=== PATIENT | female | born 1935 | race Caucasian/White ===

== ENCOUNTER 2017-07-04 21:34 | Inpatient (IN) ==
[2017-07-04] MEDS ORDERED: ONDANSETRON 4 MG/2 ML VIAL IV STA (22:31)
[2017-07-04] MEDS ORDERED: ONDANSETRON 4 MG/2 ML VIAL ONE (22:39)
[2017-07-04 23:08] LABS: Basophils # 0.1 10*3/uL (0.0-0.2); Basophils % 0.3 % (0.0-0.8); Eosinophils # 0.3 10*3/uL (0.0-0.87); Eosinophils % 1.1 % (0.00-10.9); Hematocrit 42.9 VOL% (35.7-47.0); Immature Granulocytes Absolute 0.28 #; Lymphocytes # 1.2 10*3/uL (1.4-4.0); Lymphocytes % 4.1 % (21.3-54.2); Mean Corpuscular HGB Conc 32.6 GM/DL (32-36); Mean Corpuscular Hemoglobin 30 PG (27-34); Mean Corpuscular Volume 91.5 FL (87-102); Mean Platelet Volume 9.6 FL (9.6-12.0); Monocytes # 1.1 10*3/uL (0.11-0.8); Monocytes % 3.8 % (1.7-12.7); Neutrophils # 25.4 10*3/uL (1.4-7.4); Neutrophils % 89.7 % (38.7-73.9); Platelet Count 449 T/CUMM (130-400); Red Blood Count 4.69 MC/CUMM (3.8-5.5); Red Cell Distribution Width 14.7 % (9.3-17.3); White Blood Count 28.3 T/CUMM (4-12)
[2017-07-04 23:37] LABS: Alanine Aminotransferase 14 U/L (13-56); Alkaline Phosphatase 104 U/L (45-117); Aspartate Amino Transferase 12 U/L (0-37); Bilirubin,Direct < 0.100 MG/DL (0.0-0.20); Bilirubin,Indirect 0.3 MG/DL (0.0-1.0); Blood Urea Nitrogen 29 MG/DL (7-18); Calcium 8.9 MG/DL (8.5-10.1); Glucose 116 MG/DL (74-106); Magnesium 2.5 MG/DL (1.8-2.4); Potassium 3.9 MMOL/L (3.5-5.1); Sodium 143 MMOL/L (136-145); Total Protein 8.4 G/DL (6.4-8.3); Troponin I Only < 0.015 NG/ML (0.00-0.045)
[2017-07-04] MEDS ORDERED: SODIUM CHLORIDE 0.9% 500 ML IV STA (23:40)
[2017-07-04 23:57] LABS: Anisocytosis 1+; Band Neutrophils 12 % (0-10); Eosinophils 2 % (0-10); Lymphocytes 2 % (20-55); Poikilocytosis 1+; Segmented Neutrophils 79 % (50-85); Total Cells Counted 100
[2017-07-05 00:23] LABS: Apearance,Urine Slightly Hazy (Clear); Bacteria,Urine Occasional /HPF (Few); Bilirubin,Urine Negative (Negative); Blood, Urine Small mg/dL (Negative); Glucose,Urine (UA) Negative (Negative); Hyaline Casts,Urine 5 /LPF (0-3); Ketones,Urine Negative (Negative); Mucus,Urine Occasional /LPF (Occasional); Nitrite,Urine Negative (Negative); Protein,Urine 100 MG/DL; Squamous Epithelial Cell,Urine Occasional /HPF (0-10); Urine Color Yellow (Yellow); Urine Specific Gravity 1.021 (1.001-1.035); Urine Urobilinogen < 2.0 EU/DL (0.2-1.0); WBC,Urine 5 /HPF (0-6)
[2017-07-05] MEDS: cefTRIAXone 1,000 MG in SYRINGE 1 EACH IV SCH (01:00)
[2017-07-05] MEDS ORDERED: AZITHROMYCIN 500 MG VIAL IV ONE (01:09)
[2017-07-05] MEDS ORDERED: cefTRIAXone 1,000 MG VIAL ONE (01:10)
[2017-07-05] MEDS: AZITHROMYCIN INJ 500 MG in SODIUM CHLORIDE 0.9% 250 ML IV SCH (01:30)
[2017-07-05] MEDS ORDERED: ONDANSETRON 4 MG/2 ML VIAL IV PRN (01:55)
[2017-07-05] MEDS ORDERED: ACETAMINOPHEN 325 MG TABLET PO PRN (01:55)
[2017-07-05] MEDS: SODIUM CHLORIDE 0.9% 1,000 ML IV SCH ×2 (02:24→17:15)
[2017-07-05] MEDS ORDERED: INFLUENZA VIRUS VACCINE 0.5 ML SYRINGE IM ONE (03:06)
[2017-07-05] MEDS: SODIUM CHLORIDE 0.45% 1,000 ML IV SCH ×3 (14:27→23:40)
[2017-07-05] MEDS: ALBUTEROL/IPRATROPIUM 3 ML NEB RESP TX SCH ×2 (15:04→20:41)
[2017-07-05] MEDS: methylPREDNISolone SOD SUC 40 MG/1 ML VIAL IV SCH ×2 (15:06→22:54)
[2017-07-05] MEDS: BUDESONIDE 0.25 MG/2 ML NEB RESP TX SCH (20:41)
[2017-07-06] MEDS: ALBUTEROL/IPRATROPIUM 3 ML NEB RESP TX SCH ×4 (00:24→11:29)
[2017-07-06] MEDS: cefTRIAXone 1,000 MG in SYRINGE 1 EACH IV SCH (01:09)
[2017-07-06] MEDS: AZITHROMYCIN INJ 500 MG in SODIUM CHLORIDE 0.9% 250 ML IV SCH (02:17)
[2017-07-06 05:11] LABS: Basophils % 0.1 % (0.0-0.8); Hematocrit 30.6 VOL% (35.7-47.0); Immature Granulocytes % 0.6 %; Immature Granulocytes Absolute 0.06 #; Lymphocytes # 1.1 10*3/uL (1.4-4.0); Lymphocytes % 11.3 % (21.3-54.2); Mean Corpuscular HGB Conc 32.7 GM/DL (32-36); Mean Corpuscular Hemoglobin 30 PG (27-34); Mean Corpuscular Volume 91.6 FL (87-102); Monocytes # 0.1 10*3/uL (0.11-0.8); Monocytes % 0.8 % (1.7-12.7); Neutrophils # 8.1 10*3/uL (1.4-7.4); Neutrophils % 87.2 % (38.7-73.9); Platelet Count 297 T/CUMM (130-400); Red Blood Count 3.34 MC/CUMM (3.8-5.5); Red Cell Distribution Width 14.6 % (9.3-17.3); White Blood Count 9.3 T/CUMM (4-12)
[2017-07-06 05:23] LABS: ABG Base Excess -8.6 MMOL/L (-2.5-2.5); ABG HCO3 17.5 MMOL/L (20-26); ABG Oxygen Saturation 98.8 % (95-100); ABG TCO2 13.5 MMOL/L (23-27); Allen Test Positive
[2017-07-06 05:35] LABS: Alanine Aminotransferase 10 U/L (13-56); Alkaline Phosphatase 76 U/L (45-117); Aspartate Amino Transferase 8 U/L (0-37); Bilirubin,Total < 0.39 MG/DL (0.2-1.0); Blood Urea Nitrogen 14 MG/DL (7-18); Calcium 8.2 MG/DL (8.5-10.1); Glucose 160 MG/DL (74-106); Magnesium 2.1 MG/DL (1.8-2.4); Osmolality,Calculated 286.1 MOS/KG (273-304); Potassium 4.4 MMOL/L (3.5-5.1); Sodium 142 MMOL/L (136-145); Total Protein 6.3 G/DL (6.4-8.3)
[2017-07-06] MEDS ORDERED: OLOPATADINE HCL BOTH EYES PRN (05:42)
[2017-07-06] MEDS ORDERED: ASPIRIN CHEW 81 MG TABLET PO ONE (05:48)
[2017-07-06] MEDS ORDERED: FUROSEMIDE 20 MG/2 ML VIAL IV ONE (05:52)
[2017-07-06 06:16] LABS: Troponin I Only < 0.015 NG/ML (0.00-0.045)
[2017-07-06] MEDS: methylPREDNISolone SOD SUC 40 MG/1 ML VIAL IV SCH ×3 (06:41→21:16)
[2017-07-06] MEDS: LEVOTHYROXINE 25 MCG TABLET PO SCH (07:41)
[2017-07-06] MEDS: ASPIRIN EC 81 MG TABLET PO SCH (08:53)
[2017-07-06] MEDS: METOPROLOL SUCCINATE XL 50 MG TABLET PO SCH (08:53)
[2017-07-06] MEDS ORDERED: AMIODARONE 200 MG TABLET PO SCH (09:00)
[2017-07-06] MEDS ORDERED: METOPROLOL SUCCINATE XL 25 MG TABLET PO SCH (09:00)
[2017-07-06] MEDS ORDERED: MEGESTROL 40 MG TABLET PO SCH (09:00)
[2017-07-06] MEDS: BUDESONIDE 0.25 MG/2 ML NEB RESP TX SCH ×2 (11:32→19:57)
[2017-07-06] MEDS: ISOSORBIDE MONONITRATE 30 MG TABLET PO SCH (15:09)
[2017-07-06] MEDS: LEVALBUTEROL 0.63 MG/3 ML NEB RESP TX SCH (16:12)
[2017-07-06] MEDS: IPRATROPIUM 500 MCG/2.5 ML NEB RESP TX SCH (16:12)
[2017-07-06] MEDS: SODIUM CHLORIDE 0.45% 1,000 ML IV SCH (17:46)
[2017-07-06] MEDS: ROSUVASTATIN 10 MG TABLET PO SCH (21:16)
[2017-07-07] MEDS: IPRATROPIUM 500 MCG/2.5 ML NEB RESP TX SCH ×3 (00:38→14:16)
[2017-07-07] MEDS: LEVALBUTEROL 0.63 MG/3 ML NEB RESP TX SCH ×3 (00:38→14:16)
[2017-07-07] MEDS: SODIUM CHLORIDE 0.45% 1,000 ML IV SCH ×2 (01:46→09:26)
[2017-07-07] MEDS: cefTRIAXone 1,000 MG in SYRINGE 1 EACH IV SCH (01:57)
[2017-07-07] MEDS: AZITHROMYCIN INJ 500 MG in SODIUM CHLORIDE 0.9% 250 ML IV SCH (02:48)
[2017-07-07] MEDS: methylPREDNISolone SOD SUC 40 MG/1 ML VIAL IV SCH ×3 (06:11→22:23)
[2017-07-07] MEDS: NICOTINE 21 MG/24 HR PATCH TRANSDERM PRN (06:12)
[2017-07-07] MEDS: LEVOTHYROXINE 25 MCG TABLET PO SCH (06:13)
[2017-07-07 06:24] LABS: Basophils % 0.1 % (0.0-0.8); Hematocrit 28.4 VOL% (35.7-47.0); Hemoglobin 9.2 GM/DL (12.0-16.0); Immature Granulocytes % 0.9 %; Lymphocytes # 1.2 10*3/uL (1.4-4.0); Lymphocytes % 10.4 % (21.3-54.2); Mean Corpuscular HGB Conc 32.4 GM/DL (32-36); Mean Corpuscular Hemoglobin 30 PG (27-34); Mean Platelet Volume 10.2 FL (9.6-12.0); Monocytes # 0.2 10*3/uL (0.11-0.8); Monocytes % 2.1 % (1.7-12.7); Neutrophils # 9.7 10*3/uL (1.4-7.4); Neutrophils % 86.5 % (38.7-73.9); Platelet Count 279 T/CUMM (130-400); Red Blood Count 3.12 MC/CUMM (3.8-5.5); Red Cell Distribution Width 14.6 % (9.3-17.3); White Blood Count 11.2 T/CUMM (4-12)
[2017-07-07 06:59] LABS: Calcium 8.3 MG/DL (8.5-10.1); Potassium 3.6 MMOL/L (3.5-5.1)
[2017-07-07] MEDS: ALBUTEROL/IPRATROPIUM 3 ML NEB RESP TX SCH (07:28)
[2017-07-07] MEDS: BUDESONIDE 0.25 MG/2 ML NEB RESP TX SCH ×2 (07:28→19:36)
[2017-07-07] MEDS: ASPIRIN EC 81 MG TABLET PO SCH (09:26)
[2017-07-07] MEDS: METOPROLOL SUCCINATE XL 50 MG TABLET PO SCH (09:26)
[2017-07-07] MEDS: ISOSORBIDE MONONITRATE 30 MG TABLET PO SCH (09:26)
[2017-07-07] MEDS: FUROSEMIDE 20 MG/2 ML VIAL IV SCH (09:27)
[2017-07-07] MEDS: ASCORBIC ACID 500 MG TABLET PO SCH ×2 (14:45→20:34)
[2017-07-07] MEDS: ARFORMOTEROL 15 MCG/2 ML NEB RESP TX SCH (19:36)
[2017-07-07] MEDS: ROSUVASTATIN 10 MG TABLET PO SCH (20:34)
[2017-07-08] MEDS: IPRATROPIUM 500 MCG/2.5 ML NEB RESP TX SCH ×4 (00:48→23:35)
[2017-07-08] MEDS: LEVALBUTEROL 0.63 MG/3 ML NEB RESP TX SCH ×4 (00:48→23:35)
[2017-07-08] MEDS: cefTRIAXone 1,000 MG in SYRINGE 1 EACH IV SCH (03:03)
[2017-07-08] MEDS: AZITHROMYCIN INJ 500 MG in SODIUM CHLORIDE 0.9% 250 ML IV SCH (03:12)
[2017-07-08] MEDS: methylPREDNISolone SOD SUC 40 MG/1 ML VIAL IV SCH ×2 (06:12→17:11)
[2017-07-08] MEDS: LEVOTHYROXINE 25 MCG TABLET PO SCH (06:12)
[2017-07-08 06:55] LABS: Hematocrit 30.2 VOL% (35.7-47.0); Hemoglobin 9.7 GM/DL (12.0-16.0); Immature Granulocytes % 1.2 %; Immature Granulocytes Absolute 0.11 #; Lymphocytes # 0.9 10*3/uL (1.4-4.0); Lymphocytes % 10.1 % (21.3-54.2); Mean Corpuscular HGB Conc 32.1 GM/DL (32-36); Mean Corpuscular Hemoglobin 29 PG (27-34); Mean Corpuscular Volume 90.4 FL (87-102); Mean Platelet Volume 10.8 FL (9.6-12.0); Monocytes # 0.4 10*3/uL (0.11-0.8); Monocytes % 3.9 % (1.7-12.7); Neutrophils # 7.6 10*3/uL (1.4-7.4); Neutrophils % 84.8 % (38.7-73.9); Platelet Count 286 T/CUMM (130-400); Red Blood Count 3.34 MC/CUMM (3.8-5.5); Red Cell Distribution Width 14.5 % (9.3-17.3)
[2017-07-08] MEDS: ARFORMOTEROL 15 MCG/2 ML NEB RESP TX SCH ×2 (07:14→18:15)
[2017-07-08] MEDS: BUDESONIDE 0.25 MG/2 ML NEB RESP TX SCH (07:14)
[2017-07-08 07:30] LABS: Calcium 8.1 MG/DL (8.5-10.1); Potassium 3.7 MMOL/L (3.5-5.1)
[2017-07-08] MEDS: FUROSEMIDE 20 MG/2 ML VIAL IV SCH (08:29)
[2017-07-08] MEDS: METOPROLOL SUCCINATE XL 50 MG TABLET PO SCH (08:29)
[2017-07-08] MEDS: ASCORBIC ACID 500 MG TABLET PO SCH ×2 (08:29→21:33)
[2017-07-08] MEDS: ISOSORBIDE MONONITRATE 30 MG TABLET PO SCH (08:30)
[2017-07-08] MEDS: ASPIRIN EC 81 MG TABLET PO SCH (08:30)
[2017-07-08] MEDS: FUROSEMIDE 20 MG TABLET PO SCH (09:22)
[2017-07-08] MEDS: NICOTINE 21 MG/24 HR PATCH TRANSDERM PRN (14:56)
[2017-07-08] MEDS: ROSUVASTATIN 10 MG TABLET PO SCH (21:33)
[2017-07-08] MEDS: clonazePAM 0.5 MG TABLET PO SCH (21:33)
[2017-07-09] MEDS: cefTRIAXone 1,000 MG in SYRINGE 1 EACH IV SCH (01:28)
[2017-07-09] MEDS: AZITHROMYCIN INJ 500 MG in SODIUM CHLORIDE 0.9% 250 ML IV SCH (03:19)
[2017-07-09] MEDS: methylPREDNISolone SOD SUC 40 MG/1 ML VIAL IV SCH (06:35)
[2017-07-09] MEDS: LEVOTHYROXINE 25 MCG TABLET PO SCH (06:35)
[2017-07-09] MEDS: IPRATROPIUM 500 MCG/2.5 ML NEB RESP TX SCH ×2 (08:10→15:26)
[2017-07-09] MEDS: LEVALBUTEROL 0.63 MG/3 ML NEB RESP TX SCH ×2 (08:15→15:26)
[2017-07-09] MEDS: BUDESONIDE 0.25 MG/2 ML NEB RESP TX SCH ×2 (08:15→20:03)
[2017-07-09] MEDS: ARFORMOTEROL 15 MCG/2 ML NEB RESP TX SCH ×2 (08:15→20:03)
[2017-07-09] MEDS: FUROSEMIDE 20 MG TABLET PO SCH (09:05)
[2017-07-09] MEDS: ASPIRIN EC 81 MG TABLET PO SCH (09:06)
[2017-07-09] MEDS: ASCORBIC ACID 500 MG TABLET PO SCH ×2 (09:06→21:07)
[2017-07-09] MEDS: ISOSORBIDE MONONITRATE 30 MG TABLET PO SCH (09:06)
[2017-07-09] MEDS: METOPROLOL SUCCINATE XL 50 MG TABLET PO SCH (09:06)
[2017-07-09] MEDS ORDERED: methylPREDNISolone SOD SUC 40 MG/1 ML VIAL IV SCH (10:00)
[2017-07-09] MEDS ORDERED: methylPREDNISolone SOD SUC 40 MG/1 ML VIAL ONE (11:12)
[2017-07-09 11:28] LABS: Free T4 (Free Thyroxine) 1.22 NG/DL (0.76-1.46); Thyroid Stimulating Hormone 0.34 uIU/ml (0.358-3.74)
[2017-07-09] MEDS: ROSUVASTATIN 10 MG TABLET PO SCH (21:07)
[2017-07-09] MEDS: clonazePAM 0.5 MG TABLET PO SCH (21:07)
[2017-07-10] MEDS: IPRATROPIUM 500 MCG/2.5 ML NEB RESP TX SCH ×2 (01:05→07:56)
[2017-07-10] MEDS: LEVALBUTEROL 0.63 MG/3 ML NEB RESP TX SCH ×2 (01:05→07:56)
[2017-07-10] MEDS: cefTRIAXone 1,000 MG in SYRINGE 1 EACH IV SCH (02:06)
[2017-07-10] MEDS ORDERED: methylPREDNISolone SOD SUC 40 MG/1 ML VIAL IV SCH (06:30)
[2017-07-10] MEDS: BUDESONIDE 0.25 MG/2 ML NEB RESP TX SCH (07:56)
[2017-07-10] MEDS: ARFORMOTEROL 15 MCG/2 ML NEB RESP TX SCH (07:56)
[2017-07-10] MEDS: ASPIRIN EC 81 MG TABLET PO SCH (08:48)
[2017-07-10] MEDS: METOPROLOL SUCCINATE XL 50 MG TABLET PO SCH (08:48)
[2017-07-10] MEDS: ASCORBIC ACID 500 MG TABLET PO SCH (08:48)
[2017-07-10] MEDS: FUROSEMIDE 20 MG TABLET PO SCH (08:48)
[2017-07-10] MEDS: ISOSORBIDE MONONITRATE 30 MG TABLET PO SCH (08:48)
[2017-07-10 09:36] VITALS: BP 151/82
[2017-07-11] MEDS ORDERED: LEVOTHYROXINE 25 MCG TABLET PO SCH (07:00)
== END 2017-07-10 12:23 | disposition home health service (06) | DRG 190 ==
LOC: EDBD → EDUNIT# → N.ED 21:34 → N.EDINP 07-05 01:10 → N.5E 07-05 01:54
PROVIDERS: ADMIT Internal Medicine; ATTEND Internal Medicine

== ENCOUNTER 2017-08-24 20:38 | Inpatient (IN) ==
[2017-08-24] MEDS ORDERED: ONDANSETRON 4 MG/2 ML VIAL IV STA (21:16)
[2017-08-24] MEDS ORDERED: MORPHINE 2 MG/1 ML SYRINGE IV STA (21:16)
[2017-08-24] MEDS ORDERED: SODIUM CHLORIDE 0.9% 500 ML IV STA (21:16)
[2017-08-24] MEDS ORDERED: ASPIRIN 325 MG TABLET PO STA (21:16)
[2017-08-24] MEDS ORDERED: methylPREDNISolone SOD SUC 125 MG/2 ML VIAL IV STA (21:16)
[2017-08-24] MEDS ORDERED: NITROGLYCERIN 2% OINT 1 INCH/GM PACK TOP STA (21:16)
[2017-08-24] MEDS ORDERED: ALBUTEROL 2.5 MG/3 ML NEB RESP TX SCH (21:30)
[2017-08-24] MEDS ORDERED: ASPIRIN 325 MG TABLET ONE (21:36)
[2017-08-24] MEDS ORDERED: methylPREDNISolone SOD SUC 125 MG/2 ML VIAL ONE (21:36)
[2017-08-24] MEDS ORDERED: ONDANSETRON 4 MG/2 ML VIAL ONE (21:36)
[2017-08-24] MEDS ORDERED: MORPHINE 2 MG/1 ML SYRINGE ONE (21:36)
[2017-08-24] MEDS ORDERED: NITROGLYCERIN 2% OINT 1 INCH/GM PACK TOP ONE (21:36)
[2017-08-24 22:15] LABS: Basophils # 0.1 10*3/uL (0.0-0.2); Basophils % 0.6 % (0.0-0.8); Eosinophils # 0.2 10*3/uL (0.0-0.87); Hematocrit 35.9 VOL% (35.7-47.0); Hemoglobin 12.2 GM/DL (12.0-16.0); Immature Granulocytes Absolute 0.99 #; Lymphocytes # 4.2 10*3/uL (1.4-4.0); Lymphocytes % 25.1 % (21.3-54.2); Mean Corpuscular Hemoglobin 31 PG (27-34); Mean Corpuscular Volume 90.9 FL (87-102); Mean Platelet Volume 9.9 FL (9.6-12.0); Monocytes # 1.3 10*3/uL (0.11-0.8); Monocytes % 7.9 % (1.7-12.7); Neutrophils # 9.8 10*3/uL (1.4-7.4); Neutrophils % 59.4 % (38.7-73.9); Platelet Count 494 T/CUMM (130-400); Red Blood Count 3.95 MC/CUMM (3.8-5.5); White Blood Count 16.6 T/CUMM (4-12)
[2017-08-24 22:22] LABS: PT Patient Result 10.5 SECS
[2017-08-24 22:42] LABS: Albumin 3.5 G/DL (3.4-5.0); Bilirubin,Total 0.4 MG/DL (0.2-1.0); Calcium 8.5 MG/DL (8.5-10.1); Total Protein 6.4 G/DL (6.4-8.3)
[2017-08-24 22:43] LABS: Osmolality,Calculated 283.4 MOS/KG (273-304); Potassium 3.8 MMOL/L (3.5-5.1); Troponin I Only 0.016 NG/ML (0.00-0.045)
[2017-08-24 23:23] LABS: Band Neutrophils 5 % (0-10); Lymphocytes 31 % (20-55); Platelet Estimate Normal; Segmented Neutrophils 60 % (50-85); Total Cells Counted 100
[2017-08-25] MEDS ORDERED: ENOXAPARIN 40 MG/0.4 ML SYRINGE ONE (01:22)
[2017-08-25] MEDS ORDERED: cefTRIAXone 1,000 MG VIAL ONE (01:22)
[2017-08-25] MEDS ORDERED: MORPHINE 2 MG/1 ML SYRINGE ONE (02:11)
[2017-08-25] MEDS ORDERED: MORPHINE 2 MG/1 ML SYRINGE IV PRN (02:26)
[2017-08-25] MEDS ORDERED: ALBUTEROL/IPRATROPIUM 3 ML NEB RESP TX PRN (02:26)
[2017-08-25] MEDS ORDERED: ACETAMINOPHEN 325 MG TABLET PO PRN (02:26)
[2017-08-25] MEDS ORDERED: ONDANSETRON 4 MG/2 ML VIAL IV PRN (02:26)
[2017-08-25] MEDS: SODIUM CHLORIDE 0.9% 1,000 ML IV SCH ×3 (02:53→18:14)
[2017-08-25] MEDS: methylPREDNISolone SOD SUC 40 MG/1 ML VIAL IV SCH ×4 (02:54→18:16)
[2017-08-25] MEDS: cefTRIAXone 1,000 MG in SYRINGE 1 EACH IV SCH (02:54)
[2017-08-25] MEDS: AZITHROMYCIN INJ 500 MG in SODIUM CHLORIDE 0.9% 250 ML IV SCH (03:50)
[2017-08-25 04:35] LABS: Apearance,Urine CLEAR (Clear); Bilirubin,Urine Negative (Negative); Blood, Urine Negative (Negative); Glucose,Urine (UA) Negative (Negative); Hyaline Casts,Urine 3 /LPF (0-3); Ketones,Urine Negative (Negative); Mucus,Urine Occasional /LPF (Occasional); Nitrite,Urine Negative (Negative); Protein,Urine Negative; RBC,Urine 1 /HPF (0-4); Squamous Epithelial Cell,Urine Occasional /HPF (0-10); Urine Color Yellow (Yellow); Urine Specific Gravity 1.014 (1.001-1.035); Urine Urobilinogen < 2.0 EU/DL (0.2-1.0); WBC,Urine 2 /HPF (0-6)
[2017-08-25 04:49] LABS: Basophils # 0.1 10*3/uL (0.0-0.2); Basophils % 0.5 % (0.0-0.8); Eosinophils % 0.1 % (0.00-10.9); Hematocrit 32.7 VOL% (35.7-47.0); Immature Granulocytes % 6.3 %; Immature Granulocytes Absolute 0.87 #; Lymphocytes # 1.5 10*3/uL (1.4-4.0); Lymphocytes % 10.5 % (21.3-54.2); Mean Corpuscular HGB Conc 33.6 GM/DL (32-36); Mean Corpuscular Hemoglobin 31 PG (27-34); Mean Corpuscular Volume 91.6 FL (87-102); Mean Platelet Volume 10.3 FL (9.6-12.0); Monocytes # 0.2 10*3/uL (0.11-0.8); Monocytes % 1.4 % (1.7-12.7); Neutrophils # 11.3 10*3/uL (1.4-7.4); Neutrophils % 81.2 % (38.7-73.9); Platelet Count 455 T/CUMM (130-400); Red Blood Count 3.57 MC/CUMM (3.8-5.5); Red Cell Distribution Width 16.1 % (9.3-17.3); White Blood Count 13.9 T/CUMM (4-12)
[2017-08-25 05:14] LABS: Troponin I Only < 0.015 NG/ML (0.00-0.045)
[2017-08-25 05:15] LABS: Giant Platelets Few; Hypochromasia 1+; Lymphocytes 6 % (20-55); Ovalocytes Slight; Platelet Estimate Adequate; Segmented Neutrophils 91 % (50-85); Total Cells Counted 100
[2017-08-25 05:19] LABS: Bilirubin,Total 0.5 MG/DL (0.2-1.0); Calcium 8.6 MG/DL (8.5-10.1); Osmolality,Calculated 290.1 MOS/KG (273-304); Risk Ratio 3.55; VLDL CHOLESTEROL 20.2 MG/DL
[2017-08-25] MEDS ORDERED: PANTOPRAZOLE 40 MG VIAL IV SCH (09:00)
[2017-08-25] MEDS: DOCUSATE SODIUM 100 MG CAPSULE PO SCH ×2 (09:13→20:24)
[2017-08-25] MEDS: ENOXAPARIN 30 MG/0.3 ML SYRINGE SUBCUT SCH (09:13)
[2017-08-25 13:49] LABS: Troponin I Only < 0.015 NG/ML (0.00-0.045)
[2017-08-25] MEDS: ALBUTEROL/IPRATROPIUM 3 ML NEB RESP TX SCH ×2 (14:40→19:45)
[2017-08-25] MEDS: BUDESONIDE/FORMOTEROL 80-4.5 INHALER 6.9 GM INH SCH (20:24)
[2017-08-25] MEDS: ROSUVASTATIN 20 MG TABLET PO SCH (20:24)
[2017-08-25] MEDS: PANTOPRAZOLE 40 MG TABLET PO SCH (20:24)
[2017-08-26] MEDS: AZITHROMYCIN INJ 500 MG in SODIUM CHLORIDE 0.9% 250 ML IV SCH (03:02)
[2017-08-26] MEDS: cefTRIAXone 1,000 MG in SYRINGE 1 EACH IV SCH (03:02)
[2017-08-26] MEDS: methylPREDNISolone SOD SUC 40 MG/1 ML VIAL IV SCH ×3 (03:02→17:26)
[2017-08-26] MEDS: SODIUM CHLORIDE 0.9% 1,000 ML IV SCH ×3 (05:33→17:26)
[2017-08-26] MEDS: LEVOTHYROXINE 25 MCG TABLET PO SCH (05:34)
[2017-08-26 06:08] LABS: Basophils % 0.1 % (0.0-0.8); Hematocrit 33.1 VOL% (35.7-47.0); Hemoglobin 10.5 GM/DL (12.0-16.0); Immature Granulocytes % 4.3 %; Immature Granulocytes Absolute 0.76 #; Lymphocytes # 1.4 10*3/uL (1.4-4.0); Lymphocytes % 7.7 % (21.3-54.2); Mean Corpuscular HGB Conc 31.7 GM/DL (32-36); Mean Corpuscular Hemoglobin 30 PG (27-34); Mean Corpuscular Volume 95.9 FL (87-102); Monocytes # 0.5 10*3/uL (0.11-0.8); Monocytes % 2.6 % (1.7-12.7); Neutrophils % 85.3 % (38.7-73.9); Platelet Count 421 T/CUMM (130-400); Red Blood Count 3.45 MC/CUMM (3.8-5.5); Red Cell Distribution Width 16.7 % (9.3-17.3); White Blood Count 17.6 T/CUMM (4-12)
[2017-08-26 06:29] LABS: Band Neutrophils 1 % (0-10); Lymphocytes 6 % (20-55); Segmented Neutrophils 92 % (50-85); Total Cells Counted 100
[2017-08-26 06:30] LABS: Hypochromasia 1+; Microcytosis 1+; Ovalocytes Slight; Platelet Estimate Increased
[2017-08-26 06:38] LABS: Calcium 8.2 MG/DL (8.5-10.1); Osmolality,Calculated 292.8 MOS/KG (273-304); Potassium 3.8 MMOL/L (3.5-5.1)
[2017-08-26] MEDS: ALBUTEROL/IPRATROPIUM 3 ML NEB RESP TX SCH ×4 (07:46→19:23)
[2017-08-26] MEDS: ENOXAPARIN 30 MG/0.3 ML SYRINGE SUBCUT SCH (08:47)
[2017-08-26] MEDS: FUROSEMIDE 40 MG TABLET PO SCH (08:48)
[2017-08-26] MEDS: MEGESTROL 40 MG TABLET PO SCH (08:48)
[2017-08-26] MEDS: THEOPHYLLINE ER (24 HR) 400 MG CAPSULE PO SCH (08:48)
[2017-08-26] MEDS: PANTOPRAZOLE 40 MG TABLET PO SCH ×2 (08:48→20:56)
[2017-08-26] MEDS: DOCUSATE SODIUM 100 MG CAPSULE PO SCH ×2 (08:48→20:57)
[2017-08-26] MEDS: ISOSORBIDE MONONITRATE 30 MG TABLET PO SCH (08:48)
[2017-08-26] MEDS: BUDESONIDE/FORMOTEROL 80-4.5 INHALER 6.9 GM INH SCH ×2 (08:49→20:57)
[2017-08-26] MEDS: NICOTINE 21 MG/24 HR PATCH TRANSDERM SCH (09:20)
[2017-08-26] MEDS: METOPROLOL SUCCINATE XL 25 MG TABLET PO SCH (09:20)
[2017-08-26] MEDS: ROSUVASTATIN 20 MG TABLET PO SCH (20:56)
[2017-08-27] MEDS: methylPREDNISolone SOD SUC 40 MG/1 ML VIAL IV SCH ×3 (02:31→21:57)
[2017-08-27] MEDS: cefTRIAXone 1,000 MG in SYRINGE 1 EACH IV SCH (02:32)
[2017-08-27] MEDS: AZITHROMYCIN INJ 500 MG in SODIUM CHLORIDE 0.9% 250 ML IV SCH (02:32)
[2017-08-27 06:37] LABS: Basophils % 0.1 % (0.0-0.8); Hematocrit 27.2 VOL% (35.7-47.0); Hemoglobin 9.2 GM/DL (12.0-16.0); Immature Granulocytes % 4.1 %; Immature Granulocytes Absolute 0.64 #; Mean Corpuscular HGB Conc 33.8 GM/DL (32-36); Mean Corpuscular Hemoglobin 31 PG (27-34); Mean Corpuscular Volume 91.6 FL (87-102); Mean Platelet Volume 10.6 FL (9.6-12.0); Monocytes # 0.6 10*3/uL (0.11-0.8); Monocytes % 3.9 % (1.7-12.7); Neutrophils # 13.6 10*3/uL (1.4-7.4); Neutrophils % 85.9 % (38.7-73.9); Platelet Count 361 T/CUMM (130-400); Red Blood Count 2.97 MC/CUMM (3.8-5.5); Red Cell Distribution Width 16.5 % (9.3-17.3); White Blood Count 15.8 T/CUMM (4-12)
[2017-08-27 06:58] LABS: Calcium 7.8 MG/DL (8.5-10.1); Osmolality,Calculated 290.8 MOS/KG (273-304); Potassium 3.4 MMOL/L (3.5-5.1)
[2017-08-27 07:02] LABS: Band Neutrophils 1 % (0-10); Giant Platelets Few; Hypochromasia 1+; Lymphocytes 5 % (20-55); Nucleated Red Blood Cells 1 (0-5); Ovalocytes Slight; Platelet Estimate Adequate; Segmented Neutrophils 89 % (50-85); Total Cells Counted 100
[2017-08-27 07:03] LABS: Microcytosis Slight
[2017-08-27] MEDS: LEVOTHYROXINE 25 MCG TABLET PO SCH (07:10)
[2017-08-27] MEDS: ALBUTEROL/IPRATROPIUM 3 ML NEB RESP TX SCH ×4 (08:06→19:49)
[2017-08-27] MEDS: SODIUM CHLORIDE 0.9% 1,000 ML IV SCH (09:04)
[2017-08-27] MEDS: MEGESTROL 40 MG TABLET PO SCH (09:05)
[2017-08-27] MEDS: DOCUSATE SODIUM 100 MG CAPSULE PO SCH ×2 (09:05→21:57)
[2017-08-27] MEDS: FUROSEMIDE 40 MG TABLET PO SCH (09:05)
[2017-08-27] MEDS: PANTOPRAZOLE 40 MG TABLET PO SCH ×2 (09:05→21:58)
[2017-08-27] MEDS: busPIRone 5 MG TABLET PO SCH ×3 (09:05→21:58)
[2017-08-27] MEDS: METOPROLOL SUCCINATE XL 25 MG TABLET PO SCH (09:05)
[2017-08-27] MEDS: ISOSORBIDE MONONITRATE 30 MG TABLET PO SCH (09:05)
[2017-08-27] MEDS: THEOPHYLLINE ER (24 HR) 400 MG CAPSULE PO SCH (09:05)
[2017-08-27] MEDS: ENOXAPARIN 30 MG/0.3 ML SYRINGE SUBCUT SCH (09:06)
[2017-08-27] MEDS: NICOTINE 21 MG/24 HR PATCH TRANSDERM SCH (09:06)
[2017-08-27] MEDS: BUDESONIDE/FORMOTEROL 80-4.5 INHALER 6.9 GM INH SCH ×2 (09:06→22:02)
[2017-08-27] MEDS: PARoxetine 10 MG TABLET PO SCH ×2 (09:09→21:57)
[2017-08-27] MEDS: ROSUVASTATIN 20 MG TABLET PO SCH (21:58)
[2017-08-28] MEDS: cefTRIAXone 1,000 MG in SYRINGE 1 EACH IV SCH (03:19)
[2017-08-28] MEDS: AZITHROMYCIN INJ 500 MG in SODIUM CHLORIDE 0.9% 250 ML IV SCH (03:19)
[2017-08-28] MEDS: LEVOTHYROXINE 25 MCG TABLET PO SCH (06:14)
[2017-08-28 06:32] LABS: Basophils % 0.1 % (0.0-0.8); Hematocrit 30.2 VOL% (35.7-47.0); Hemoglobin 10.1 GM/DL (12.0-16.0); Immature Granulocytes % 5.1 %; Immature Granulocytes Absolute 1.03 #; Lymphocytes # 1.1 10*3/uL (1.4-4.0); Lymphocytes % 5.4 % (21.3-54.2); Mean Corpuscular HGB Conc 33.4 GM/DL (32-36); Mean Corpuscular Hemoglobin 31 PG (27-34); Mean Corpuscular Volume 91.2 FL (87-102); Mean Platelet Volume 10.7 FL (9.6-12.0); Monocytes # 0.9 10*3/uL (0.11-0.8); Monocytes % 4.7 % (1.7-12.7); NRBC # 0.02 10*3/uL; Neutrophils # 17.1 10*3/uL (1.4-7.4); Neutrophils % 84.7 % (38.7-73.9); Platelet Count 386 T/CUMM (130-400); Red Blood Count 3.31 MC/CUMM (3.8-5.5); Red Cell Distribution Width 16.3 % (9.3-17.3); White Blood Count 20.1 T/CUMM (4-12)
[2017-08-28 06:59] LABS: Hypochromasia 1+; Lymphocytes 4 % (20-55); Segmented Neutrophils 92 % (50-85); Total Cells Counted 100
[2017-08-28 07:00] LABS: Microcytosis 1+; Ovalocytes Slight; Platelet Estimate Normal
[2017-08-28 07:02] LABS: Calcium 8.2 MG/DL (8.5-10.1); Potassium 3.2 MMOL/L (3.5-5.1)
[2017-08-28] MEDS: ALBUTEROL/IPRATROPIUM 3 ML NEB RESP TX SCH ×4 (07:30→20:13)
[2017-08-28] MEDS ORDERED: methylPREDNISolone SOD SUC 40 MG/1 ML VIAL IV SCH (09:00)
[2017-08-28] MEDS: THEOPHYLLINE ER (24 HR) 400 MG CAPSULE PO SCH (09:07)
[2017-08-28] MEDS: METOPROLOL SUCCINATE XL 25 MG TABLET PO SCH (09:08)
[2017-08-28] MEDS: FUROSEMIDE 40 MG TABLET PO SCH (09:08)
[2017-08-28] MEDS: POTASSIUM CHLORIDE 20 MEQ TABLET PO PRN ×4 (09:08→14:59)
[2017-08-28] MEDS: busPIRone 5 MG TABLET PO SCH ×3 (09:08→21:36)
[2017-08-28] MEDS: DOCUSATE SODIUM 100 MG CAPSULE PO SCH ×2 (09:09→21:36)
[2017-08-28] MEDS: PANTOPRAZOLE 40 MG TABLET PO SCH ×2 (09:09→21:35)
[2017-08-28] MEDS: ISOSORBIDE MONONITRATE 30 MG TABLET PO SCH (09:09)
[2017-08-28] MEDS: ENOXAPARIN 30 MG/0.3 ML SYRINGE SUBCUT SCH (09:09)
[2017-08-28] MEDS: MEGESTROL 40 MG TABLET PO SCH (09:09)
[2017-08-28] MEDS: BUDESONIDE/FORMOTEROL 80-4.5 INHALER 6.9 GM INH SCH ×2 (09:09→21:36)
[2017-08-28] MEDS: NICOTINE 21 MG/24 HR PATCH TRANSDERM SCH (09:11)
[2017-08-28] MEDS: PARoxetine 10 MG TABLET PO SCH (21:36)
[2017-08-28] MEDS: ROSUVASTATIN 20 MG TABLET PO SCH (21:36)
[2017-08-29] MEDS: cefTRIAXone 1,000 MG in SYRINGE 1 EACH IV SCH (03:14)
[2017-08-29] MEDS: AZITHROMYCIN INJ 500 MG in SODIUM CHLORIDE 0.9% 250 ML IV SCH (03:14)
[2017-08-29] MEDS: LEVOTHYROXINE 25 MCG TABLET PO SCH (06:10)
[2017-08-29] MEDS: ALBUTEROL/IPRATROPIUM 3 ML NEB RESP TX SCH ×4 (07:25→18:56)
[2017-08-29] MEDS: NICOTINE 21 MG/24 HR PATCH TRANSDERM SCH (09:32)
[2017-08-29] MEDS: ENOXAPARIN 30 MG/0.3 ML SYRINGE SUBCUT SCH (09:32)
[2017-08-29] MEDS: ISOSORBIDE MONONITRATE 30 MG TABLET PO SCH (09:33)
[2017-08-29] MEDS: FUROSEMIDE 40 MG TABLET PO SCH (09:33)
[2017-08-29] MEDS: BUDESONIDE/FORMOTEROL 80-4.5 INHALER 6.9 GM INH SCH ×2 (09:34→20:50)
[2017-08-29] MEDS: THEOPHYLLINE ER (24 HR) 400 MG CAPSULE PO SCH (09:34)
[2017-08-29] MEDS: predniSONE 20 MG TABLET PO SCH (09:34)
[2017-08-29] MEDS: METOPROLOL SUCCINATE XL 25 MG TABLET PO SCH (09:34)
[2017-08-29] MEDS: MEGESTROL 40 MG TABLET PO SCH (09:34)
[2017-08-29] MEDS: busPIRone 5 MG TABLET PO SCH ×3 (09:34→20:50)
[2017-08-29] MEDS: DOCUSATE SODIUM 100 MG CAPSULE PO SCH ×3 (09:34→20:50)
[2017-08-29] MEDS: PANTOPRAZOLE 40 MG TABLET PO SCH ×2 (09:34→20:50)
[2017-08-29] MEDS: ROSUVASTATIN 20 MG TABLET PO SCH (20:50)
[2017-08-29] MEDS: PARoxetine 10 MG TABLET PO SCH (20:50)
[2017-08-30] MEDS: cefTRIAXone 1,000 MG in SYRINGE 1 EACH IV SCH (05:48)
[2017-08-30] MEDS: LEVOTHYROXINE 25 MCG TABLET PO SCH (05:48)
[2017-08-30 06:40] LABS: Basophils # 0.1 10*3/uL (0.0-0.2); Basophils % 0.2 % (0.0-0.8); Hematocrit 35.1 VOL% (35.7-47.0); Hemoglobin 11.7 GM/DL (12.0-16.0); Immature Granulocytes % 3.8 %; Immature Granulocytes Absolute 0.99 #; Lymphocytes # 2.6 10*3/uL (1.4-4.0); Lymphocytes % 10.2 % (21.3-54.2); Mean Corpuscular HGB Conc 33.3 GM/DL (32-36); Mean Corpuscular Hemoglobin 31 PG (27-34); Mean Corpuscular Volume 91.4 FL (87-102); Mean Platelet Volume 10.7 FL (9.6-12.0); Monocytes # 0.8 10*3/uL (0.11-0.8); Monocytes % 3.3 % (1.7-12.7); NRBC # 0.05 10*3/uL; Neutrophils # 21.2 10*3/uL (1.4-7.4); Neutrophils % 82.5 % (38.7-73.9); Platelet Count 337 T/CUMM (130-400); Red Blood Count 3.84 MC/CUMM (3.8-5.5); White Blood Count 25.8 T/CUMM (4-12)
[2017-08-30] MEDS: ALBUTEROL/IPRATROPIUM 3 ML NEB RESP TX SCH ×4 (07:01→17:57)
[2017-08-30 07:12] LABS: Calcium 8.6 MG/DL (8.5-10.1); Osmolality,Calculated 281.4 MOS/KG (273-304); Potassium 3.3 MMOL/L (3.5-5.1)
[2017-08-30 07:29] LABS: Band Neutrophils 1 % (0-10); Lymphocytes 11 % (20-55); Segmented Neutrophils 87 % (50-85); Total Cells Counted 100
[2017-08-30 07:30] LABS: Giant Platelets Few; Hypochromasia 1+; Microcytosis Slight; Ovalocytes Slight; Platelet Estimate Adequate
[2017-08-30] MEDS: busPIRone 5 MG TABLET PO SCH ×3 (09:43→20:38)
[2017-08-30] MEDS: FUROSEMIDE 40 MG TABLET PO SCH (09:44)
[2017-08-30] MEDS: DOCUSATE SODIUM 100 MG CAPSULE PO SCH ×2 (09:44→20:39)
[2017-08-30] MEDS: ISOSORBIDE MONONITRATE 30 MG TABLET PO SCH (09:44)
[2017-08-30] MEDS: NICOTINE 21 MG/24 HR PATCH TRANSDERM SCH (09:45)
[2017-08-30] MEDS: predniSONE 20 MG TABLET PO SCH (09:45)
[2017-08-30] MEDS: MEGESTROL 40 MG TABLET PO SCH (09:45)
[2017-08-30] MEDS: ENOXAPARIN 30 MG/0.3 ML SYRINGE SUBCUT SCH (09:45)
[2017-08-30] MEDS: PANTOPRAZOLE 40 MG TABLET PO SCH ×2 (09:46→20:38)
[2017-08-30] MEDS: BUDESONIDE/FORMOTEROL 80-4.5 INHALER 6.9 GM INH SCH ×2 (09:46→20:39)
[2017-08-30] MEDS: THEOPHYLLINE ER (24 HR) 400 MG CAPSULE PO SCH (09:46)
[2017-08-30] MEDS: METOPROLOL SUCCINATE XL 25 MG TABLET PO SCH (09:47)
[2017-08-30] MEDS: POTASSIUM CHLORIDE 20 MEQ TABLET PO PRN ×3 (09:48→14:53)
[2017-08-30 12:01] LABS: Amorphous Crystals,Urine Occasional /HPF (Few); Apearance,Urine CLOUDY (Clear); Bacteria,Urine Occasional /HPF (Few); Bilirubin,Urine Negative (Negative); Blood, Urine Moderate mg/dL (Negative); Glucose,Urine (UA) Negative (Negative); Ketones,Urine Negative (Negative); Nitrite,Urine Negative (Negative); Protein,Urine 30 MG/DL; Urine Color Yellow (Yellow); Urine Specific Gravity 1.011 (1.001-1.035); Urine Urobilinogen < 2.0 EU/DL (0.2-1.0); WBC,Urine 1 /HPF (0-6)
[2017-08-30 12:29] LABS: Barbiturates Screen,Urine Negative (Negative); Benzodiazepines Screen,Urine Negative (Negative); Cannabinoid Screen,Urine Negative (Negative); Opiate Screen,Urine Positive (Negative); Phencyclidine Screen,Urine Negative (Negative)
[2017-08-30] MEDS: PARoxetine 10 MG TABLET PO SCH (20:38)
[2017-08-30] MEDS: ROSUVASTATIN 20 MG TABLET PO SCH (20:38)
[2017-08-31] MEDS ORDERED: PROMETHAZINE 25 MG/1 ML VIAL IM PRN (04:59)
[2017-08-31] MEDS: LEVOTHYROXINE 25 MCG TABLET PO SCH ×2 (05:21→05:43)
[2017-08-31] MEDS: cefTRIAXone 1,000 MG in SYRINGE 1 EACH IV SCH (05:21)
[2017-08-31] MEDS: ALBUTEROL/IPRATROPIUM 3 ML NEB RESP TX SCH (07:24)
[2017-08-31] MEDS ORDERED: ALBUTEROL/IPRATROPIUM 3 ML NEB RESP TX STA (08:19)
[2017-08-31] MEDS ORDERED: NALOXONE 0.4 MG/ML VIAL ONE (08:22)
[2017-08-31] MEDS ORDERED: SODIUM CHLORIDE 0.9% 500 ML IV ONE (08:28)
[2017-08-31 11:02] VITALS: BP 165/71
== END 2017-08-31 08:33 | disposition expired | DRG 191 ==
LOC: EDBD → EDUNIT# → N.ED 20:38 → N.EDINP 08-25 00:47 → N.5E 08-25 01:05
PROVIDERS: ADMIT Internal Medicine; ATTEND Internal Medicine